=== PATIENT | female | born 1975 ===

== ENCOUNTER 2021-07-16 14:33 | Outpatient (REF) | payer SELFPAY ==
[2021-07-16 21:25] LABS: Abs Immature Grans 0.03 10^3/uL (0.0-0.06); Absolute Basophil Count 0.03 10^3/uL (0.0-0.2); Absolute Eosinophil Count 0.06 10^3/uL (0.0-0.7); Absolute Lymphocyte Count 3.34 10^3/uL (1.2-3.4); Absolute Monocyte Count 0.51 10^3/uL (0.1-0.8); Absolute Neutrophil Count 6.31 10^3/uL (1.2-6.7); Basophils % 0.3; Eosinophils % 0.6; HCT 43.2 % (36.0-46.0); HGB 13.5 g/dL (11.2-15.7); Immature Grans % 0.3; Lymphocytes % 32.5; MCH 24.4 pg (27.0-33.0); MCHC 31.3 % (32.0-36.0); MPV 12.1 fL (8.0-11.0); Neutrophils % 61.3; Nucleated RBC 0 %; Platelet Count 322 10^3/uL (130-400); RBC 5.54 10^6/uL (3.93-5.22); RDW-SD 42.2 fL; WBC 10.28 10^3/uL (4.4-10.8)
[2021-07-16 21:54] LABS: ALT 35 U/L (14-59); AST 21 U/L (15-37); Alkaline Phosphatase 179 U/L (46-116); Anion Gap 9.6 mmol/L (3-11); BUN 16 mg/dL (7-18); Bilirubin, Total 0.4 mg/dL (0.2-1.0); CO2 29.4 mmol/L (21.0-32.0); Chloride 99 mmol/L (98-107); Estimated GFR 59.69 (mL/min/1.73m2); Glucose 303 mg/dL (74-106); Potassium 4.6 mmol/L (3.5-5.1); Sodium 138 mmol/L (136-145); Total Protein 8.8 g/dL (6.4-8.2)
[2021-07-16 22:04] LABS: Hemoglobin A1C 12.4 % (<5.7)
== END 2021-07-16 14:34 | disposition home or self-care (01) ==
LOC: LBN 14:33
PROVIDERS: PCP Family Medicine; Visit Provider Family Medicine
DX: R73.09 Other abnormal glucose (principal)
CPT/HCPCS: 80053; 83036; 85025

== ENCOUNTER 2021-09-08 03:32 | Outpatient (CLI) | payer SELFPAY ==
[2021-09-08 13:11] LABS: COMMENT (LAB VIEW ONLY) 98.44 mg/dL; Microalb ug/mg Crea 10.7 ug/mg Cr
[2021-09-08 13:39] LABS: Calculated LDL 127 mg/dL (<100); Cholesterol 231 mg/dL (<200); HDL Cholesterol 38 mg/dL (40-60); Triglyceride 331 mg/dL (<150)
== END 2021-09-08 03:33 | disposition home or self-care (01) ==
LOC: LBO 03:32
PROVIDERS: PCP Family Medicine; Visit Provider Family Medicine
DX: E11.65 Type 2 diabetes mellitus with hyperglycemia (principal)
CPT/HCPCS: 36415; 80061; 82043; 82570

== ENCOUNTER 2022-10-28 04:34 | Outpatient (CLI) | payer MEDICAID, SELFPAY ==
[2022-10-28 12:42] LABS: ALT 23 U/L (14-59); AST 22 U/L (15-37); Albumin 3.7 g/dL (3.4-5.0); Alkaline Phosphatase 124 U/L (46-116); Anion Gap 8.2 mmol/L (3-11); BUN 12 mg/dL (7-18); Bilirubin, Total 0.3 mg/dL (0.2-1.0); CO2 29.8 mmol/L (21.0-32.0); CREATININE 0.9 mg/dL (0.55-1.02); Calcium 9.9 mg/dL (8.5-10.1); Calculated LDL 105 mg/dL (<100); Chloride 100 mmol/L (98-107); Cholesterol 214 mg/dL (<200); Estimated GFR 78.86 (mL/min/1.73m2); Glucose 220 mg/dL (74-106); HDL Cholesterol 41 mg/dL (40-60); Sodium 138 mmol/L (136-145); Total Protein 8.6 g/dL (6.4-8.2); Triglyceride 340 mg/dL (<150)
[2022-10-28 12:52] LABS: COMMENT (LAB VIEW ONLY) 117.54 mg/dL; Microalb ug/mg Crea 9.4 ug/mg Cr
== END 2022-10-28 04:35 | disposition home or self-care (01) ==
LOC: LOS 04:34
PROVIDERS: PCP Family Medicine; Visit Provider Family Medicine
DX: E11.65 Type 2 diabetes mellitus with hyperglycemia (principal)
CPT/HCPCS: 36415; 80053; 80061; 82043; 82570